=== PATIENT | female | born 2000 | race Caucasian/White ===

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

== ENCOUNTER → 2020-12-25 16:05 | Outpatient (CLI) | payer MEDICAID, SELFPAY ==
[2020-12-25 13:07] VITALS: BMI 61.6
[2020-12-25 19:09] LABS: Chlamydia Trachomatis by PCR POSITIVE (Negative); Neisserai gonorrhoeae by PCR Negative (Negative); Probe Check PASS
== END ==
PROVIDERS: Referring Provider Nurse Practitioner Women's Health; Visit Provider Nurse Practitioner Women's Health
DX: Z11.3 Encounter for screening for infections with a predominantly sexual mode of transmission (principal)
CPT/HCPCS: 87491; 87591

== ENCOUNTER → 2021-08-10 16:21 | Outpatient (CLI) | payer MEDICAID, SELFPAY ==
[2021-08-10 17:17] LABS: Amphetamine Urine VISTA NEGATIVE (<1000 ng/mL); Barbiturate Urine VISTA NEGATIVE (< 200 ng/mL); Benzodiazepine Urine VISTA NEGATIVE (< 200 ng/mL); Cocaine Urine VISTA NEGATIVE (< 300 ng/mL); Ecstacy Urine VISTA NEGATIVE (< 500 ng/mL); Methadone Urine VISTA NEGATIVE (< 300 ng/mL); PCP Urine VISTA NEGATIVE (< 25 ng/mL); THC Urine VISTA NEGATIVE (< 50 ng/mL); Vista UDS pH Range 6
[2021-08-12 22:06] LABS: Chlamydia By Nucleic Acid AMP Negative (Negative)
[2021-08-12 22:50] LABS: Gonococcus By Nucleic Acid AMP Negative (Negative)
[2021-08-16 14:39] LABS: HPV Reflexed? NOT INDICATED
== END ==
PROVIDERS: Referring Provider Obstetrics & Gynecology; Visit Provider Obstetrics & Gynecology
DX: Z34.90 Encounter for supervision of normal pregnancy, unspecified, unspecified trimester (principal); F32.A Depression, unspecified; E66.01 Morbid (severe) obesity due to excess calories; E03.9 Hypothyroidism, unspecified; J45.909 Unspecified asthma, uncomplicated; Z68.44 Body mass index [BMI] 60.0-69.9, adult
CPT/HCPCS: 80307; 87086; 87088; 87491; 87591; 88175; G0145

== ENCOUNTER 2021-09-08 16:03 | Outpatient (CLI) | payer MEDICAID, SELFPAY ==
[2021-09-08 17:08] LABS: Absolute Lymphocyte Count 1.81 X10^3/uL (0.83-4.51); Absolute Neutrophil Count 9.2 X10^3/uL (2.0-7.7); Basophil# 0.04 X10^3/uL; Basophil% 0.3 % (0-1); Eosinophil# 0.05 X10^3/uL; Eosinophils% 0.4 % (0-5); Lymphocyte # 1.81 X10^3/ul (0.83-4.51); Lymphocyte % 15.6 % (19-41); Mean Corp Hgb Conc 34.2 g/dL (32-36); Mean Corpuscular Hgb 28.3 pg (27.0-32.0); Mean Corpuscular Volume 82.8 fL (81-99); Mean Platelet Vol. 10.5 fl (6.2-12.0); Monocyte# 0.46 X10^3/uL; NRBC Flagged by Analyzer 0 % (0-5); Neutrophil # 9.18 X10^3/uL (2.7-7.7); Neutrophil % 79.4 % (47-70); Platelet Count 248 K/mm3 (150-450); RBC Distribution Width CV 13.3 % (11.6-14.6); RBC Distribution Width SD 39.8 fl (35.1-43.9); Red Blood Count 4.59 M/mm3 (4.2-5.4); White Blood Count 11.6 K/mm3 (4.4-11.0)
[2021-09-08 17:59] LABS: Glucose Challenge Gest 1H 50g 142 mg/dL (70-140)
[2021-09-09 09:21] LABS: HIV - WCH Non-Reactive (Nonreactive); Hepatitis B Surface Antigen Non-Reactive (Nonreactive); Hepatitis C Antibody Non-Reactive (Nonreactive); Rubella IgG Reactive (Nonreactive); Syphilis Antibodies Non-reactive
== END 2021-09-08 23:59 | disposition short-term general hospital (02) ==
LOC: LAB 16:05
PROVIDERS: Visit Provider Obstetrics & Gynecology
DX: O99.340 Other mental disorders complicating pregnancy, unspecified trimester (principal); E66.01 Morbid (severe) obesity due to excess calories; F32.A Depression, unspecified; O99.210 Obesity complicating pregnancy, unspecified trimester; O99.280 Endocrine, nutritional and metabolic diseases complicating pregnancy, unspecified trimester; E03.9 Hypothyroidism, unspecified; O99.519 Diseases of the respiratory system complicating pregnancy, unspecified trimester; J45.909 Unspecified asthma, uncomplicated; Z3A.00 Weeks of gestation of pregnancy not specified
CPT/HCPCS: 36415; 82950; 85025; 86703; 86762; 86780; 86803; 86850; 86900; 86901; 87340

== ENCOUNTER 2021-11-10 13:37 | Outpatient (CLI) | payer MEDICAID, SELFPAY ==
[2021-11-10 14:10] LABS: Hemoglobin A1c 5.1 % (3.8-5.6)
[2021-11-10 14:13] LABS: Glucose 86 mg/dL (74-106); T4 Free Direct 0.89 ng/dL (0.76-1.46)
== END 2021-11-10 23:59 | disposition home or self-care (01) ==
LOC: PAVLAB 13:38
PROVIDERS: Referring Provider Obstetrics & Gynecology; Visit Provider Obstetrics & Gynecology
DX: Z13.1 Encounter for screening for diabetes mellitus (principal); R73.09 Other abnormal glucose
CPT/HCPCS: 36415; 82947; 83036; 84439

== ENCOUNTER 2021-11-30 15:38 | Outpatient (CLI) | payer MEDICAID, SELFPAY ==
[2021-11-30 15:52] LABS: Absolute Lymphocyte Count 2.35 X10^3/uL (0.83-4.51); Absolute Neutrophil Count 12.7 X10^3/uL (2.0-7.7); Basophil# 0.04 X10^3/uL; Basophil% 0.3 % (0-1); Eosinophil# 0.04 X10^3/uL; Eosinophils% 0.3 % (0-5); Hematocrit 36.2 % (37-47); Hemoglobin 12.6 g/dL (12.0-15.0); Lymphocyte # 2.35 X10^3/ul (0.83-4.51); Lymphocyte % 14.7 % (19-41); Mean Corp Hgb Conc 34.8 g/dL (32-36); Mean Corpuscular Hgb 29.8 pg (27.0-32.0); Mean Corpuscular Volume 85.6 fL (81-99); Mean Platelet Vol. 10.2 fl (6.2-12.0); Monocyte# 0.73 X10^3/uL; Monocyte% 4.6 % (0-10); NRBC Flagged by Analyzer 0 % (0-5); Neutrophil # 12.71 X10^3/uL (2.7-7.7); Neutrophil % 79.6 % (47-70); Platelet Count 228 K/mm3 (150-450); RBC Distribution Width CV 13.7 % (11.6-14.6); RBC Distribution Width SD 42.5 fl (35.1-43.9); Red Blood Count 4.23 M/mm3 (4.2-5.4)
[2021-11-30 16:19] LABS: Protein, Urine (Random) 22.4 mg/dL (<11.9); Protein:Creat Ratio 204 mg/g CRE (0-200)
[2021-11-30 16:27] LABS: ALB/GLOB Ratio 0.8 RATIO (0.9-2.4); AST(SGOT) 10 U/L (15-37); Alanine Aminotransfer ALT/SGPT 27 U/L (13-56); Alkaline Phosphatase 85 U/L (45-117); Anion Gap 6 (5-15); BUN 3 mg/dL (7-18); BUN/Creat Ratio 5.1 RATIO (10-20); Calcium,Total 9.3 mg/dL (8.5-10.1); Chloride 109 mmol/L (98-107); Creatinine, Serum 0.59 mg/dL (0.55-1.02); EST Glomerular Filtration Rate 136 mL/min (>60); Est Glom Filt Rate - Afr Amer 165 mL/min (>60); Glucose 102 mg/dL (74-106); Potassium 3.2 mmol/L (3.5-5.1); Sodium Level 140 mmol/L (136-145)
== END 2021-11-30 23:59 | disposition home or self-care (01) ==
LOC: PAVLAB 15:39
PROVIDERS: Referring Provider Nurse Practitioner Women's Health; Visit Provider Nurse Practitioner Women's Health
DX: Z34.92 Encounter for supervision of normal pregnancy, unspecified, second trimester (principal)
CPT/HCPCS: 36415; 80053; 82570; 84156; 85025

== ENCOUNTER 2021-12-21 10:08 | Outpatient (CLI) | payer MEDICAID, SELFPAY ==
[2021-12-21 11:13] LABS: Absolute Lymphocyte Count 2.05 X10^3/uL (0.83-4.51); Absolute Neutrophil Count 12.2 X10^3/uL (2.0-7.7); Basophil# 0.04 X10^3/uL; Basophil% 0.3 % (0-1); Eosinophil# 0.07 X10^3/uL; Eosinophils% 0.5 % (0-5); Hematocrit 34.8 % (37-47); Hemoglobin 11.7 g/dL (12.0-15.0); Lymphocyte # 2.05 X10^3/ul (0.83-4.51); Lymphocyte % 13.5 % (19-41); Mean Corp Hgb Conc 33.6 g/dL (32-36); Mean Corpuscular Volume 86.1 fL (81-99); Mean Platelet Vol. 10.2 fl (6.2-12.0); Monocyte# 0.74 X10^3/uL; Monocyte% 4.9 % (0-10); NRBC Flagged by Analyzer 0 % (0-5); Neutrophil % 80.3 % (47-70); Platelet Count 230 K/mm3 (150-450); RBC Distribution Width CV 13.6 % (11.6-14.6); RBC Distribution Width SD 42.4 fl (35.1-43.9); Red Blood Count 4.04 M/mm3 (4.2-5.4); White Blood Count 15.2 K/mm3 (4.4-11.0)
[2021-12-21 11:27] LABS: Glucose GTT-Gestation. Fasting 88 mg/dL (<105)
[2021-12-21 11:45] LABS: Thyroid Stim Hormone (TSH) 3.24 uIU/mL (0.358-3.74)
[2021-12-21 12:22] LABS: Glucose GTT-Gestational 1 Hr 169 mg/dL (<190)
[2021-12-21 12:57] LABS: Glucose GTT-Gestational 2 Hr 154 mg/dL (<165)
[2021-12-21 14:04] LABS: Glucose GTT-Gestational 3 Hr 71 L (<145)
== END 2021-12-21 23:59 | disposition home or self-care (01) ==
PROVIDERS: Nurse Practitioner Women's Health; Visit Provider Obstetrics & Gynecology
DX: R73.09 Other abnormal glucose (principal); E03.9 Hypothyroidism, unspecified
CPT/HCPCS: 36415; 82951; 82952; 84443; 85025

== ENCOUNTER 2022-01-18 22:20 | Outpatient (CLI) | payer MEDICAID, SELFPAY ==
[2022-01-18 22:47] VITALS: BMI 52.4
[2022-01-18 22:54] VITALS: O2SAT 97
[2022-01-18 22:55] VITALS: BP 129/58; PULSE 102; O2SAT 98
[2022-01-18 22:58] VITALS: TEMP 37.4
[2022-01-18 23:22] LABS: Mucous, Urine 0 SEEN /hpf (<or=2+)
[2022-01-18 23:25] LABS: Color, Urine Yellow (Yellow); Glucose, Dipstick 100 mg/dl (Normal); Ketone-Dipstick 50 mg/dl (Negative); Leukocyte Esterase-Dipstick 500 /ul (Negative); Nitrite-Dipstick Negative (Negative); Occult Blood-Urine 10 /ul (Negative); Protein-Dipstick 15 mg/dl (Negative); Urine Bilirubin Dipstick Negative (Negative); Urine Clarity Sl. Cloudy (Clear); Urine Urobilinogen 1 mg/dl (Normal); Urine pH 6.5 (5.0 - 8.0)
[2022-01-18 23:39] LABS: Bacteria 4+ /hpf (None Seen); Red Blood Cells-Urine 0-5 SEEN /hpf (0-5); Squamous Epithelial Cells - UA 5-10 SEEN /hpf (5-10); White Blood Cells 10-25 SEEN /hpf (0-5)
[2022-01-18 23:40] LABS: Transitional Epithelial - Ur 0-5 SEEN /hpf (0-5)
--- NOTE | 2022-01-19 18:46 | OB.TRI.PN ---
Progress Notes Date of Service: 01/18/22 Progress Note: Patient presents for triage evaluation secondary to abdominal pain FHT: 150 Moderate variability reactive no decelerations category I tracing [place]: n oregular Contractions Assessment and plan: abdominal pain, resolved spontaneously, ua and culture sent, Reactive NST, reassuring maternal and status patient discharged to home to follow-up sabino schmitt. See problem list details for additional plan information. Laboratory Studies: Laboratory Tests 01/18/22 Range/Units 23:15 Urine Color Yellow (Yellow) Urine Clarity Sl. Cloudy (Clear) Urine pH 6.5 (5.0 - 8.0) Ur Specific [place] 1.020 (1.002-1.030) Urine Protein 15 H (Negative) mg/dl Urine Glucose (UA) 100 H (Normal) mg/dl Urine Ketones 50 H (Negative) mg/dl Urine Occult Blood 10 H (Negative) /ul Urine Nitrite Negative (Negative) Urine Bilirubin Negative (Negative) mg/dL Urine Urobilinogen 1 H (Normal) mg/dl Ur Leukocyte Esterase 500 H (Negative) /ul Urine RBC 0-5 SEEN (0-5) /hpf Urine WBC 10-25 SEEN (0-5) /hpf Ur Squamous Epith Cells 5-10 SEEN (5-10) /hpf Ur Transition Epith Cell 0-5 SEEN (0-5) /hpf Urine Bacteria 4+ (None Seen) /hpf Urine Mucus 0 SEEN (<or=2+) /hpf Charges/Coding Procedures Urinary/Genital 52xxx-59xxx: 84943-12 non-stress test Interp
== END 2022-01-19 00:05 | disposition home or self-care (01) ==
LOC: WPOUT 22:44 → WP 22:44
PROVIDERS: Visit Provider Obstetrics & Gynecology
DX: O26.899 Other specified pregnancy related conditions, unspecified trimester (principal); R10.9 Unspecified abdominal pain; Z3A.00 Weeks of gestation of pregnancy not specified
CPT/HCPCS: 59025; 59050; 81001; 87086; 87088; 99218; G0378

== ENCOUNTER → 2022-01-22 | Outpatient (CLI) | payer MEDICAID, SELFPAY ==
--- NOTE | 2022-01-22 12:16 | US_ITS ---
STUDY: SECOND AND THIRD TRIMESTER OBSTETRICAL ULTRASOUND - LIMITED REASON FOR EXAM: Female, 21 years old growth @ 32 and 36 weeks LMP: 06/10/2021. PRIOR ULTRASOUND: None. TECHNIQUE: Transabdominal TECHNICAL QUALITY: Limited. Examination limited due to obesity. FINDINGS: There is a single intrauterine fetus. The fetus is in a breech presentation. There is demonstrated cardiac activity with a heart rate of 141 bpm. There is a normal amniotic fluid volume. The largest amniotic fluid pocket measures 5.9 cm cm. The amniotic fluid index (MARIMAR) is 16.6 cm. The placenta is posterior in location and is not low lying. There are Grade 1 placental changes. The cervix measures 4.2 cm in length. BIOMETRY: BPD: 8.29 cm: 33 weeks, 2 days HC: 30.35 cm: 33 weeks, 5 days AC: 29.49 cm: 33 weeks, 3 days FL: 6.52 cm: 33 weeks, 4 days Age by LMP: 32 weeks, 2 days. CLARIBEL by LMP: 03/17/2022. age by current US: 33 weeks, 3 days. CLARIBEL by current US: 03/09/2022. Estimated weight: 2235 grams, +/- 335 grams, 80 percentile. US/OB Limited With Biometrics IMPRESSION: A single live intrauterine gestation with a mean gestational age of 33 weeks and 3 days. Electronically Signed: Dylan Alvarado MD at 13:38 EDT ,
[2022-01-22 19:07] LABS: Protein, Urine (Random) 64.2 mg/dL (<11.9); Protein:Creat Ratio 409 mg/g CRE (0-200)
== END | disposition home or self-care (01) ==
PROVIDERS: Obstetrics & Gynecology; PCP Family Medicine; Visit Provider Nurse Practitioner Women's Health
DX: R80.9 Proteinuria, unspecified (principal)
CPT/HCPCS: 76816; 82570; 84156

== ENCOUNTER → 2022-01-27 | Outpatient (CLI) | payer MEDICAID, SELFPAY ==
[2022-01-27 13:46] LABS: Absolute Lymphocyte Count 2.18 X10^3/uL (0.83-4.51); Absolute Neutrophil Count 15.2 X10^3/uL (2.0-7.7); Basophil# 0.02 X10^3/uL; Basophil% 0.1 % (0-1); Eosinophil# 0.06 X10^3/uL; Eosinophils% 0.3 % (0-5); Hematocrit 37.3 % (37-47); Hemoglobin 12.7 g/dL (12.0-15.0); Lymphocyte # 2.18 X10^3/ul (0.83-4.51); Lymphocyte % 11.8 % (19-41); Mean Corpuscular Hgb 28.9 pg (27.0-32.0); Mean Platelet Vol. 9.6 fl (6.2-12.0); Monocyte# 0.94 X10^3/uL; Monocyte% 5.1 % (0-10); NRBC Flagged by Analyzer 0 % (0-5); Neutrophil % 82.3 % (47-70); Platelet Count 241 K/mm3 (150-450); RBC Distribution Width CV 13.2 % (11.6-14.6); RBC Distribution Width SD 41.1 fl (35.1-43.9); Red Blood Count 4.39 M/mm3 (4.2-5.4); White Blood Count 18.5 K/mm3 (4.4-11.0)
[2022-01-27 14:23] LABS: ALB/GLOB Ratio 0.7 RATIO (0.9-2.4); AST(SGOT) 22 U/L (15-37); Alanine Aminotransfer ALT/SGPT 16 U/L (13-56); Albumin, Serum 2.7 g/dL (3.2-5.0); Alkaline Phosphatase 108 U/L (45-117); Anion Gap 6 (5-15); BUN 4 mg/dL (7-18); BUN/Creat Ratio 7.4 RATIO (10-20); Calcium,Total 9.2 mg/dL (8.5-10.1); Chloride 109 mmol/L (98-107); Creatinine, Serum 0.54 mg/dL (0.55-1.02); EST Glomerular Filtration Rate 150 mL/min (>60); Est Glom Filt Rate - Afr Amer 182 mL/min (>60); Glucose 79 mg/dL (74-106); Potassium 3.8 mmol/L (3.5-5.1); Protein, Total 6.7 g/dL (6.4-8.2); Sodium Level 139 mmol/L (136-145)
[2022-01-27 14:39] LABS: Protein, Urine (Random) 36.5 mg/dL (<11.9); Protein:Creat Ratio 230 mg/g CRE (0-200)
== END | disposition home or self-care (01) ==
LOC: PAVLAB 13:35
PROVIDERS: Nurse Practitioner Women's Health; Referring Provider Obstetrics & Gynecology; Visit Provider Obstetrics & Gynecology
DX: Z34.02 Encounter for supervision of normal first pregnancy, second trimester (principal); R80.9 Proteinuria, unspecified
CPT/HCPCS: 36415; 80053; 82570; 84156; 85025

== ENCOUNTER → 2022-02-12 | Outpatient (CLI) | payer MEDICAID, SELFPAY ==
--- NOTE | 2022-02-12 08:47 | US_ITS ---
STUDY: OBSTETRICAL ULTRASOUND - BIOPHYSICAL PROFILE REASON FOR EXAM: Female, 21 years old obsesity LMP: 06/10/2021 PRIOR ULTRASOUND: 01/22/2022 TECHNIQUE: Transabdominal TECHNICAL QUALITY: Adequate. FINDINGS: There is a single intrauterine fetus. The fetus is in a breech presentation. There is demonstrated cardiac activity with a heart rate of 152 bpm. There is a normal amniotic fluid volume. The largest amniotic fluid pocket measures 7.7 cm. The amniotic fluid index (MARIMAR) is 17.7 cm. The placenta is posterior in location and is not low lying. There are Grade 1 placental changes. Age by LMP: 35 weeks, 2 days. CLARIBEL by LMP: 03/17/2022. BIOPHYSICAL PROFILE: Breathing Movements (FBM): 2 Gross Body Movements (GBM): 2 Tone (FT): 2 Amniotic Fluid Volume (AFV): 2 TOTAL SCORE: 8 / 8 US/Biophysical Prof W/O Non Stres IMPRESSION: Normal biophysical profile of 04/12. Electronically Signed: Avery Gooden MD at 9:36 EDT ,
== END | disposition home or self-care (01) ==
LOC: OPUS 08:43
PROVIDERS: Referring Provider Obstetrics & Gynecology; Visit Provider Obstetrics & Gynecology
DX: E66.01 Morbid (severe) obesity due to excess calories (principal)
CPT/HCPCS: 76819

== ENCOUNTER → 2022-02-17 | Outpatient (CLI) | payer MEDICAID, SELFPAY ==
--- NOTE | 2022-02-17 13:32 | US_ITS ---
STUDY: SECOND AND THIRD TRIMESTER OBSTETRICAL ULTRASOUND - LIMITED REASON FOR EXAM: Female, 21 years old growth LMP: 06/10/2021. PRIOR ULTRASOUND: Comparison is made with prior studies of 01/22/2022. TECHNIQUE: Transabdominal TECHNICAL QUALITY: Adequate. FINDINGS: There is a single intrauterine fetus. The fetus is in a breech presentation. There is demonstrated cardiac activity with a heart rate of 148 bpm. There is a normal amniotic fluid volume. The largest amniotic fluid pocket measures 5.6 x 7.6 cm. The amniotic fluid index (MARIMAR) is 20.1 cm. The placenta is posterior in location and is not low lying. There are Grade 2 placental changes. The cervix measures 3.8 cm in length. BIOMETRY: BPD: 8.9 cm: 35 weeks, 6 days HC: 32.19 cm: 36 weeks, 2 days AC: 33.7 cm: 37 weeks, 4 days FL: 7.16 cm: 36 weeks, 4 days Age by LMP: 36 weeks, 0 days. CLARIBEL by LMP: 03/17/2022. age by prior US: 37 weeks, 1 days. CLARIBEL by prior US: 03/09/2022. age by current US: 36 weeks, 2 days. CLARIBEL by current US: 03/15/2022. Estimated weight: 3145 grams, +/- 472 grams, 81.3 percentile. US/OB Limited With Biometrics IMPRESSION: Single live intrauterine gestation with mean gestational age of 37 weeks and 1 day. The measurements obtained today following within the normal expected range. Electronically Signed: Dylan Alvarado MD at 15:49 EDT ,
--- NOTE | 2022-02-17 13:42 | US_ITS ---
STUDY: OBSTETRICAL ULTRASOUND - BIOPHYSICAL PROFILE REASON FOR EXAM: Female, 21 years old obesity -- WEEKLY STANDING ORDER LMP: 06/10/2021. PRIOR ULTRASOUND: Comparison is made with prior study dated 02/12/2022. TECHNIQUE: Transabdominal TECHNICAL QUALITY: Adequate. FINDINGS: There is a single intrauterine fetus. The fetus is in a breech presentation. There is demonstrated cardiac activity with a heart rate of 167 bpm. There is a normal amniotic fluid volume. The largest amniotic fluid pocket measures 3.3 cm x 10.3 cm. The amniotic fluid index (MARIMAR) is 17.5 cm. The placenta is posterior in location and is not low lying. There are Grade 0 placental changes. Age by LMP: 36 weeks, 0 days. CLARIBEL by LMP: 03/17/2022. BIOPHYSICAL PROFILE: Breathing Movements (FBM): 2 Gross Body Movements (GBM): 2 Tone (FT): 2 Amniotic Fluid Volume (AFV): 2 TOTAL SCORE: 8 / 8 US/Biophysical Prof W/O Non Stres IMPRESSION: Normal biophysical profile of 04/12. Electronically Signed: Dylan Alvarado MD at 15:41 EDT ,
== END | disposition home or self-care (01) ==
LOC: OPUS 13:30
PROVIDERS: Visit Provider Obstetrics & Gynecology
DX: Z34.02 Encounter for supervision of normal first pregnancy, second trimester (principal)
CPT/HCPCS: 76816; 76817; 76819

== ENCOUNTER 2022-02-19 16:35 | Outpatient (CLI) | payer MEDICAID, SELFPAY ==
[2022-02-19 16:47] VITALS: BP 134/89; PULSE 100
[2022-02-19 16:48] VITALS: BMI 55.2
[2022-02-19] MEDS: Lactated Ringers 1,000 ML 999 ML IV (18:25)
[2022-02-19] MEDS: Ondansetron 4 MG/2 ML Vial IV (18:29)
[2022-02-19 19:00] LABS: Absolute Lymphocyte Count 1.13 X10^3/uL (0.83-4.51); Absolute Neutrophil Count 18.9 X10^3/uL (2.0-7.7); Basophil# 0.02 X10^3/uL; Basophil% 0.1 % (0-1); Eosinophil# 0.02 X10^3/uL; Eosinophils% 0.1 % (0-5); Hematocrit 36.6 % (37-47); Hemoglobin 12.5 g/dL (12.0-15.0); Lymphocyte # 1.13 X10^3/ul (0.83-4.51); Lymphocyte % 5.3 % (19-41); Mean Corp Hgb Conc 34.2 g/dL (32-36); Mean Corpuscular Hgb 28.8 pg (27.0-32.0); Mean Corpuscular Volume 84.3 fL (81-99); Mean Platelet Vol. 10.3 fl (6.2-12.0); Monocyte# 0.97 X10^3/uL; Monocyte% 4.6 % (0-10); NRBC Flagged by Analyzer 0 % (0-5); Neutrophil # 18.91 X10^3/uL (2.7-7.7); Neutrophil % 89.3 % (47-70); Platelet Count 231 K/mm3 (150-450); RBC Distribution Width CV 13.1 % (11.6-14.6); RBC Distribution Width SD 40.1 fl (35.1-43.9); Red Blood Count 4.34 M/mm3 (4.2-5.4); White Blood Count 21.2 K/mm3 (4.4-11.0)
[2022-02-19 19:12] LABS: ALB/GLOB Ratio 0.7 RATIO (0.9-2.4); AST(SGOT) 9 U/L (15-37); Alanine Aminotransfer ALT/SGPT 14 U/L (13-56); Albumin, Serum 2.6 g/dL (3.2-5.0); Alkaline Phosphatase 125 U/L (45-117); Anion Gap 8 (5-15); BUN 5 mg/dL (7-18); BUN/Creat Ratio 10.3 RATIO (10-20); Calcium,Total 8.7 mg/dL (8.5-10.1); Chloride 113 mmol/L (98-107); Creatinine, Serum 0.48 mg/dL (0.55-1.02); EST Glomerular Filtration Rate 170 mL/min (>60); Est Glom Filt Rate - Afr Amer 206 mL/min (>60); Estimated Creatinine Clearance 166.83 ml/min; Globulin 3.9 g/dL (2.2-4.2); Glucose 88 mg/dL (74-106); Potassium 3.3 mmol/L (3.5-5.1); Protein, Total 6.5 g/dL (6.4-8.2); Sodium Level 141 mmol/L (136-145)
[2022-02-19 19:54] VITALS: TEMP 36.5
[2022-02-19 19:57] VITALS: BP 146/81; PULSE 103
[2022-02-19 20:16] LABS: Mucous, Urine 0 SEEN /hpf (<or=2+)
[2022-02-19 20:19] LABS: Color, Urine Yellow (Yellow); Glucose, Dipstick Normal (Normal); Leukocyte Esterase-Dipstick 500 /ul (Negative); Nitrite-Dipstick Negative (Negative); Occult Blood-Urine 10 /ul (Negative); Protein-Dipstick 30 mg/dl (Negative); Urine Bilirubin Dipstick Negative (Negative); Urine Clarity Cloudy (Clear); Urine Urobilinogen 1 mg/dl (Normal)
[2022-02-19 20:25] LABS: Ketone-Dipstick 150 mg/dl (Negative)
[2022-02-19 20:34] LABS: Red Blood Cells-Urine 0-5 SEEN /hpf (0-5); Squamous Epithelial Cells - UA 25-50 SEEN /hpf (5-10); White Blood Cells 25-50 SEEN /hpf (0-5)
[2022-02-19 20:35] LABS: Amorphous Sediment 3+ PHOS; Bacteria RARE /hpf (None Seen)
--- NOTE | 2022-02-19 20:45 | OB.TRI.HP_ITS ---
HPI - General HPI Narrative CHANG SIERRA, is a 21 F who presents with acute onset of nausea and vomiting abdominal pain intermittently with contractions. Patient has not dilated significantly. Patient has back pain reoperating around the front. She denies any fever. She has a leukocytosis initially on evaluation and urinalysis is suspicious for UTI. She denies any vaginal bleeding or loss of fluid admits good movement. Maternal Data Information CLARIBEL Calculator Estimated Delivery Date Method Current WG Current Estimate 03/17/22 LMP (Certain) 36w 3d Other Estimates 03/14/22 Ultrasound #1 36w 6d PFSH PFSH Medical History (Updated 02/20/22 @ 15:[address] Mary Person MD) Abnormal glucose Asthma Hypothyroid Low serum potassium Home Medications albuterol sulfate 90 mcg/actuation aerosol inhaler 2 puff inhalation Q6H PRN asthma 12/25/20 [History Last Taken Unknown] multivitamin no.47-iron fum 27 mg-folate no.1 1 mg-dha 300 mg capsule (PNV-DHA) 1 cap PO DAILY 07/28/21 [History Last Taken 02/18/22] ondansetron HCl 4 mg tablet 4 mg PO Q8H PRN nausea and vomiting #30 tabs 09/08/21 [Rx Last Taken 11/03/21 12:00] Allergy/AdvReac Type Severity Reaction Status Date / Time No Known Allergies Allergy Verified 02/19/22 17:22 Family History Aunt Cancer Breast cancer Surgical History History of appendectomy History of tonsillectomy Social History adopted: No current occupational status: employed current occupation: [employer] pets and animals: Yes Smoking Status: Never smoker second hand exposure: Yes alcohol intake: never substance use type: does not use seatbelt use: always do you feel safe at home: Yes additional social history: BF: Praveen History 1 Elective abortions Hx Para Spontaneous abortions Hx # Term Pregnancies Ectopic pregnancies Hx # Pregnancies Multiple births # of living children Visit Details Expected Delivery Route/Plan Labor Preferences- CB/BF classes: yes labor support person: Praveen or her mom Landy labor intervention preferences: [] pain management options preferred: epidural cut cord/dad catch: [] : yes PP control planned: wants IUD pp discussed possible routes of delivery and associated risks: [] special requests: [] Plans Covid status: considering vaccine, encouraged Flu vaccine: given Tdap vaccine: [] Rhogam: na LARC form signed: yes Problem list reviewed and updated with the most current plan of care details and appropriate orders placed. Relevant counseling for the gestational age provided. Continue routine care and follow up unless otherwise noted in visit notes/problem list details OB Flowsheet Initial Weight: 359 lb Date -?-?-?-?-?-?-?-?-?-?-?-?- EGA Weight BP Urine Prot -?-?-?-?-?-?-?-?-?-?-?-?- Glucose FHR FuHt Pres Dilation -?-?-?-?-?-?-?-?-?-?-?-?- Effaced St Visit Note 08/10/21 -?-?-?-?-?-?-?-?-?-?-?-?- 8w 5d 356 lb (-3 lb) 90/62 -?-?-?-?-?-?-?-?-?-?-?-?- 180 -?-?-?-?-?-?-?-?-?-?-?-?- SM- CRL 2.2 cons with LMP 09/08/21 -?-?-?-?-?-?-?-?-?-?-?-?- 12w 6d 343 lb 4 oz (-15 lb 12 oz) 124/78 Negative -?-?-?-?-?-?-?-?-?-?-?-?- Negative 135 -?-?-?-?-?-?-?-?-?-?-?-?- JV- no spotting or cramping. sharyn rx sent in. pt to do her 1 hr and blood work before next visit. declines genetic testing due to cost .she will call her insurance. in the meantime, consult to [facility] for targeted anatomy scan 09/17/21 -?-?-?-?-?-?-?-?-?-?-?-?- 14w 1d 341 lb 2 oz (-17 lb 14 oz) 140/78 Negative -?-?-?-?-?-?-?-?-?-?-?-?- Negative 161 -?-?-?-?-?-?-?-?-?-?-?-?- JV- pt is being seen for spotting. She states that she saw blood on her toilet seat over the weekend and some red blood when she wiped. No cramping. 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 No signs of bleeding on exam on the external or internal exam. ultrasound is normal also 10/06/21 -?-?-?-?-?-?-?-?-?-?-?-?- 16w 6d 334 lb 6 oz (-24 lb 10 oz) 134/68 Trace -?-?-?-?--?-?-?-?-?-?-?-?- Negative 147 -?-?-?-?-?-?-?-?-?-?-?-?- MH-No Vb, LOF. H as not scheduled 3 hr GTT:schedule for her on 10/12 at 10am. Erythematous rash panis:Rx nystatin sent. Has anatomy US with MFM scheduled. 11/10/21 -?-?-?-?-?-?-?-?-?-?-?-?- 21w 6d 333 lb 6 oz (-25 lb 10 oz) 114/62 Negative -?-?-?-?-?-?-?-?-?-?-?-?- Negative 145 -?-?-?-?-?-?-?-?-?-?-?-?- SM- no vb lof go od fm no regular ctx check labs today due to noncompliance with getting 3 hr, still needs 3 hr. 11/30/21 -?-?-?-?-?-?-?-?-?-?-?-?- 24w 5d 336 lb 6 oz (-22 lb 10 oz) 148/78 136/70 Trace -?-?-?-?-?-?-?-?-?-?-?-?- Negative 148 -?-?-?-?-?-?-?-?-?-?-?-?- MH-Britt discharg e when wiped earlier today. Good FM. Last coitus 1 week. No blood in vaginal vault, Cx closed. Reassured. MH-Britt discharge when wiped earlier today. Good FM. Last coitus 1 week. No blood in vaginal vault, Cx closed. Reassured. Pre E labs as initial BP elevated. Stress importance of 3 hr GTT 12/17/21 -?-?-?-?-?-?-?-?-?-?-?-?- 27w 1d 333 lb (-26 lb) 124/82 Trace -?-?-?-?-?-?-?-?-?-?-?-?- Negative 161 -?-?-?-?-?-?-?-?-?-?-?-?- MH-No Vb, LOF. G ood FM. Did not due 3 hr GTT/schedule 12/21. Stressed importance and if not done consider management as GDM. Tearful, much stress, spouse wants separation, not engaged in . Her mother is supportive. Discussed zoloft and agrees to start. Larc 12/31/21 -?-?-?-?-?-?-?-?-?-?-?-?- 29w 1d 330 lb (-29 lb) 130/78 Negative -?-?-?-?-?-?-?-?-?-?-?-?- Negative 157 -?-?-?-?-?-?-?-?-?-?-?-?- MH-No VB, LOF. G ood FM. Nl 3hr GTT. FOB with her today. States zoloft helpful. 01/22/22 -?-?-?-?-?-?-?-?-?-?-?-?- 32w 2d 334 lb 6 oz (-24 lb 10 oz) 126/68 1+ -?-?-?-?-?-?-?-?-?-?-?-?- Negative 140 -?-?-?-?-?-?-?-?-?-?-?-?- SM- no vb lof go od fm no regular ctx nst reactive. ur protein cr ratio sent 01/27/22 -?-?-?-?-?-?-?-?-?-?-?-?- 33w 0d 335 lb 2 oz (-23 lb 14 oz) 134/78 Negative -?-?-?-?-?-?-?-?-?-?-?-?- Negative 146 -?-?-?-?-?-?-?-?-?-?-?-?- MH-reactive NST. NO Vb LOF. Good FM. PreE labs today 02/05/22 -?-?-?-?-?-?-?-?-?-?-?-?- 34w 2d 332 lb 2 oz (-26 lb 14 oz) 128/80 Negative -?-?-?-?-?-?-?-?-?-?-?-?- Negative 140 -?-?-?-?-?-?-?-?-?-?-?-?- SM- no vb lof go od fm nor egular ctx, difficult to trace on nst due to body habitus, will get weekly bpps for testing 02/19/22 -?-?-?-?-?-?-?-?-?-?-?-?- 36w 3d 332 lb (-27 lb) 134/89 146/81 131/58 30 mg/dl (Negative) H -?-?-?-?-?-?-?-?-?-?-?-?- -?-?-?-?-?-?-?-?-?-?-?-?- ROS Constitutional Constitutional: Reports systems reviewed and no addt'l complaints, except as documented and as per HPI ENT HEENT: Reports systems reviewed and no addt'l complaints, except as documented Cardiovascular Cardiovascular: Reports systems reviewed and no addt'l complaints, except as documented Respiratory/Chest Respiratory/Chest: Reports systems reviewed and no addt'l complaints, except as documented Gastrointestinal Gastrointestinal: Reports as per HPI Genitourinary Genitourinary: Reports as per HPI Musculoskeletal Musculoskeletal: Reports systems reviewed and no addt'l complaints, except as documented Integumentary Integumentary: Reports systems reviewed and no addt'l complaints, except as documented Neurologic Neurologic: Reports systems reviewed and no addt'l complaints, except as documented Physical Exam Const alert, oriented x3 and no apparent distress HEENT Head and Scalp: normocephalic and atraumatic Neck full ROM and no lymphadenopathy Chest inspection of chest normal Resp normal respiratory effort GI GI Narrative: gravid, abdomen nontender, AGA Manual OB Exam: dilated, effaced and station NST FHR Rate Baby A Baseline: 140 Variability:: Moderate Accelerations:: 15 x 15 Decelerations:: None NST Reactive:: Yes FHR Category:: Category I Uterine Activity:: regular q 2-4 Assessment & Plan (1) Proteinuria affecting : QUALIFIERS: Trimester: third trimester Qualified Code(s): O12.13 - Gestational proteinuria, third trimester COMMENT: P/C ratio improved. (2) Contraception management: COMMENT: IUD 6 wk pp (3) Abnormal glucose: COMMENT: needs 3 hr GTT, has been noncompliant getting, ordered HgA1c and random glucose 11/10, passed 3 hr. GTT (4) Abnormal Pap smear of cervix: COMMENT: 08/25 LGSIL repeat in 1 year (5) Depression: QUALIFIERS: Depression Type: reactive depression Qualified Code(s): F32.9 - Major depressive disorder, single episode, unspecified COMMENT: 12/17 start zoloft. She and Praveen are ; has fear her MIL will cause issues in WP. 12/31 Praveen with her today. States zoloft helpful (6) Morbid obesity: COMMENT: Nl 3hr GTT. Needs NST wkly at 32 wk (7) H/O cleft lip: COMMENT: FOB has cleft lip (8) Hypothyroid: QUALIFIERS: Hypothyroidism type: acquired Qualified Code(s): E0 3.9 - Hypothyroidism, unspecified COMMENT: levels last checked 06/2021, check every trimester (9) Asthma: COMMENT: PRN inhaler (10) Supervision of normal : QUALIFIERS: Normal : normal first Trimester: second trimester Qualified Code(s): Z34.02 - Encounter for supervision of normal first , second trimester COMMENT: PRR CLARIBEL: 03/17/22 BF: Praveen (11) : QUALIFIERS: Weeks of gestation: 34 weeks Qualified Code(s): Z3A.34 - 34 weeks gestation of COMMENT: anatomy nl, FU views in 2 wks, declines genetic and carrier d/t cost FU for growth in 4 wks due to suboptimal views on anatomy FU (12) UTI (urinary tract infection): COMMENT: ceftriaxone- not keflex x 10 days (13) Leukocytosis: PLAN: Plan Admit short-term observation overnight IV antibiotics given repeat CBC in a.m. IV fluids given. If CBC improves DC home on oral antibiotics and follow-up as outpatient. Patient is status post previous appendectomy. Suspect viral gastroenteritis versus UTI. Antibiotics will be given for possible UTI. No diagnostic imaging indicated at this time. Charges/Coding Multi Select Codes Visit Charges Office Visit/Consults: 23123 OV L3 Est Urinary/Genital Urinary/Genital CPT Codes: 49666-21 non-stress test Interp
[2022-02-19] MEDS: proCHLORPERazine 10 MG/2 ML Vial 5 MG IV (21:10)
[2022-02-19] MEDS: Acetaminophen 500 MG Tablet 1000 MG PO (21:10)
[2022-02-19] MEDS: KCL 40mEq in 0.9% NS 40 MEQ/1,000 ML IV.SOLN 150 MEQ IV (21:13)
[2022-02-19] MEDS: Ceftriaxone 1 GM/50 ML BAG IV (21:13)
[2022-02-20] MEDS: Ondansetron 4 MG/2 ML Vial IV (02:37)
[2022-02-20 05:03] VITALS: BP 131/58; PULSE 107; RESP 14; TEMP 36.5; O2SAT 95
[2022-02-20 05:18] LABS: Absolute Lymphocyte Count 0.56 X10^3/uL (0.83-4.51); Absolute Neutrophil Count 14.8 X10^3/uL (2.0-7.7); Basophil# 0.02 X10^3/uL; Basophil% 0.1 % (0-1); Hematocrit 34.6 % (37-47); Hemoglobin 11.9 g/dL (12.0-15.0); Lymphocyte # 0.56 X10^3/ul (0.83-4.51); Lymphocyte % 3.5 % (19-41); Mean Corp Hgb Conc 34.4 g/dL (32-36); Mean Corpuscular Hgb 29.1 pg (27.0-32.0); Mean Corpuscular Volume 84.6 fL (81-99); Mean Platelet Vol. 9.8 fl (6.2-12.0); Monocyte# 0.47 X10^3/uL; Monocyte% 2.9 % (0-10); NRBC Flagged by Analyzer 0 % (0-5); Neutrophil # 14.84 X10^3/uL (2.7-7.7); POSITIVE DIFFERENTIAL YES; Platelet Count 205 K/mm3 (150-450); RBC Distribution Width CV 13.2 % (11.6-14.6); RBC Distribution Width SD 40.5 fl (35.1-43.9); Red Blood Count 4.09 M/mm3 (4.2-5.4)
[2022-02-20 05:31] LABS: Differential Indicated SCAN CRITERIA MET
[2022-02-20 05:32] LABS: Differential Comment SCANNED
[2022-02-20 06:42] LABS: ALB/GLOB Ratio 0.7 RATIO (0.9-2.4); AST(SGOT) 10 U/L (15-37); Alanine Aminotransfer ALT/SGPT 13 U/L (13-56); Albumin, Serum 2.3 g/dL (3.2-5.0); Alkaline Phosphatase 112 U/L (45-117); Anion Gap 7 (5-15); BUN 6 mg/dL (7-18); BUN/Creat Ratio 12.2 RATIO (10-20); Calcium,Total 8.4 mg/dL (8.5-10.1); Chloride 114 mmol/L (98-107); Creatinine, Serum 0.49 mg/dL (0.55-1.02); EST Glomerular Filtration Rate 167 mL/min (>60); Est Glom Filt Rate - Afr Amer 202 mL/min (>60); Estimated Creatinine Clearance 163.42 ml/min; Globulin 3.5 g/dL (2.2-4.2); Glucose 102 mg/dL (74-106); Potassium 3.7 mmol/L (3.5-5.1); Protein, Total 5.8 g/dL (6.4-8.2); Sodium Level 142 mmol/L (136-145)
== END 2022-02-20 07:20 | disposition home or self-care (01) ==
LOC: WPOUT 16:42 → WP 16:43
PROVIDERS: Visit Provider Obstetrics & Gynecology
DX: O12.13 Gestational proteinuria, third trimester (principal); E66.01 Morbid (severe) obesity due to excess calories; O99.810 Abnormal glucose complicating pregnancy; O99.343 Other mental disorders complicating pregnancy, third trimester; F32.9 Major depressive disorder, single episode, unspecified; O99.213 Obesity complicating pregnancy, third trimester; O99.283 Endocrine, nutritional and metabolic diseases complicating pregnancy, third trimester; E03.9 Hypothyroidism, unspecified; O99.513 Diseases of the respiratory system complicating pregnancy, third trimester; J45.909 Unspecified asthma, uncomplicated; O23.43 Unspecified infection of urinary tract in pregnancy, third trimester; O21.2 Late vomiting of pregnancy; Z3A.34 34 weeks gestation of pregnancy
CPT/HCPCS: 96365; 96368; 96361; 96375 ×2; 96376; 36415; 59025; 59050; 80053; 81001; 85025; 87086; 87088; 87426; 99218; J7120; G0378; J2405

== ENCOUNTER → 2022-02-23 | Outpatient (CLI) | payer MEDICAID, SELFPAY ==
--- NOTE | 2022-02-23 15:39 | US_ITS ---
STUDY: OBSTETRICAL ULTRASOUND - BIOPHYSICAL PROFILE REASON FOR EXAM: Female, 21 years old maternal obesity. LMP: 06/10/2021. PRIOR ULTRASOUND: 02/17/2022 02/12/2022 and 01/22/2022 TECHNIQUE: Transabdominal TECHNICAL QUALITY: Adequate. FINDINGS: There is a single intrauterine fetus. The fetus is in a cephalic presentation. There is demonstrated cardiac activity with a heart rate of 153 bpm. There is a normal amniotic fluid volume. The largest amniotic fluid pocket measures 6.2 cm. The amniotic fluid index (MARIMAR) is 21.5 cm. The placenta is posterior in location and is not low lying. There are Grade 2 placental changes. Age by LMP: 36 weeks, 6 days. CLARIBEL by LMP: 03/17/2022. age by prior US: 38 weeks, 0 days. CLARIBEL by prior US: 03/09/2022. BIOPHYSICAL PROFILE: Breathing Movements (FBM): 2 Gross Body Movements (GBM): 2 Tone (FT): 2 Amniotic Fluid Volume (AFV): 2 TOTAL SCORE: 8 / 8 US/Biophysical Prof W/O Non Stres IMPRESSION: Normal biophysical profile of 8/8. Electronically Signed: Aaron Salazar DO at 22:16 EDT ,
== END | disposition home or self-care (01) ==
LOC: US 15:38
PROVIDERS: Referring Provider Nurse Practitioner Women's Health; Visit Provider Nurse Practitioner Women's Health
DX: E66.9 Obesity, unspecified (principal)
CPT/HCPCS: 76819

== ENCOUNTER → 2022-02-26 | Outpatient (CLI) | payer MEDICAID, SELFPAY | END | disposition home or self-care (01) | PROVIDERS: Referring Provider Obstetrics & Gynecology; Visit Provider Obstetrics & Gynecology | DX: Z34.90 Encounter for supervision of normal pregnancy, unspecified, unspecified trimester (principal) | CPT/HCPCS: 87081 ==

== ENCOUNTER 2022-02-27 02:20 | Outpatient (CLI) | payer MEDICAID, SELFPAY ==
[2022-02-27] VITALS (8 sets, daily range): BP systolic 135–140; BP diastolic 63–84; PULSE 69–91; TEMP 36.5; O2SAT 98–99
--- NOTE | 2022-02-27 09:46 | OB.TRI.HP_ITS ---
HPI - General HPI Narrative CHANG SIERRA, is a 21 y/o @ 37 weeks 3 days who presents to L&D with the complaint of losing her mucous plug. She denies contractions but is worried that she could be in labor and baby is breech. No loss of fluid, vaginal bleeding, or dec fm. Maternal Data Information CLARIBEL Calculator Estimated Delivery Date Method Current WG Current Estimate 03/17/22 LMP (Certain) 37w 3d Other Estimates 03/14/22 Ultrasound #1 37w 6d PFSH PFSH Medical History Abnormal glucose Asthma Hypothyroid Low serum potassium Home Medications albuterol sulfate 90 mcg/actuation aerosol inhaler 2 puff inhalation Q6H PRN asthma 12/25/20 [History Last Taken Unknown] multivitamin no.47-iron fum 27 mg-folate no.1 1 mg-dha 300 mg capsule (PNV-DHA) 1 cap PO DAILY 07/28/21 [History Last Taken 02/18/22] Allergy/AdvReac Type Severity Reaction Status Date / Time No Known Allergies Allergy Verified 02/26/22 11:36 Family History Aunt Cancer Breast cancer Surgical History History of appendectomy History of tonsillectomy Social History adopted: No current occupational status: employed current occupation: [employer] pets and animals: Yes Smoking Status: Never smoker second hand exposure: Yes alcohol intake: never substance use type: does not use seatbelt use: always do you feel safe at home: Yes additional social history: BF: Praveen History 1 Elective abortions Hx Para Spontaneous abortions Hx # Term Pregnancies Ectopic pregnancies Hx # Pregnancies Multiple births # of living children Visit Details Expected Delivery Route/Plan Labor Preferences- CB/BF classes: yes labor support person: Praveen or her mom Landy labor intervention preferences: [] pain management options preferred: epidural cut cord/dad catch: [] : yes PP control planned: wants IUD pp discussed possible routes of delivery and associated risks: [] special requests: [] Plans Covid status: considering vaccine, encouraged Flu vaccine: given Tdap vaccine: [] Rhogam: na LARC form signed: yes Problem list reviewed and updated with the most current plan of care details and appropriate orders placed. Relevant counseling for the gestational age provided. Continue routine care and follow up unless otherwise noted in visit notes/problem list details OB Flowsheet Initial Weight: 359 lb Date -?-?-?-?-?-?-?-?-?-?-?-?- EGA Weight BP Urine Prot -?-?-?-?-?-?-?-?-?-?-?-?- Glucose FHR FuHt Pres Dilation -?-?-?-?-?-?-?-?-?-?-?-?- Effaced St Visit Note 08/10/21 -?-?-?-?-?-?-?-?-?-?-?-?- 8w 5d 356 lb (-3 lb) 90/62 -?-?-?-?-?-?-?-?-?-?-?-?- 180 -?-?-?-?-?-?-?-?-?-?-?-?- SM- CRL 2.2 cons with LMP 09/08/21 -?-?-?-?-?-?-?-?-?-?-?-?- 12w 6d 343 lb 4 oz (-15 lb 12 oz) 124/78 Negative -?-?-?-?-?-?-?-?-?-?-?-?- Negative 135 -?-?-?-?-?-?-?-?-?-?-?-?- JV- no spotting or cramping. sharyn rx sent in. pt to do her 1 hr and blood work before next visit. declines genetic testing due to cost .she will call her insurance. in the meantime, consult to [facility] for targeted anatomy scan 09/17/21 -?-?-?-?-?-?-?-?-?-?-?-?- 14w 1d 341 lb 2 oz (-17 lb 14 oz) 140/78 Negative -?-?-?-?-?-?-?-?-?-?-?-?- Negative 161 -?-?-?-?-?-?-?-?-?-?-?-?- JV- pt is being seen for spotting. She states that she saw blood on her toilet seat over the weekend and some red blood when she wiped. No cramping. 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 No signs of bleeding on exam on the external or internal exam. ultrasound is normal also 10/06/21 -?-?-?-?-?--?-?-?-?-?-?-?- 16w 6d 334 lb 6 oz (-24 lb 10 oz) 134/68 Trace -?-?-?-?-?-?-?-?-?-?-?-?- Negative 147 -?-?-?-?-?-?-?-?-?-?-?-?- MH-No Vb, LOF. H as not scheduled 3 hr GTT:schedule for her on 10/12 at 10am. Erythematous rash panis:Rx nystatin sent. Has anatomy US with [facility] scheduled. 11/10/21 -?-?-?-?--?-?-?-?-?-?-?-?- 21w 6d 333 lb 6 oz (-25 lb 10 oz) 114/62 Negative -?-?-?-?-?-?-?-?-?-?-?-?- Negative 145 -?-?-?-?-?-?-?-?-?-?-?-?- SM- no vb lof go od fm no regular ctx check labs today due to noncompliance with getting 3 hr, still needs 3 hr. 11/30/21 -?-?-?-?-?-?-?-?-?-?-?-?- 24w 5d 336 lb 6 oz (-22 lb 10 oz) 148/78 136/70 Trace -?-?-?-?-?-?-?-?-?-?-?-?- Negative 148 -?-?-?-?-?-?-?-?-?-?-?-?- MH-[place] discharg e when wiped earlier today. Good FM. Last coitus 1 week. No blood in vaginal vault, Cx closed. Reassured. MH-[place] discharge when wiped earlier today. Good FM. Last coitus 1 week. No blood in vaginal vault, Cx closed. Reassured. Pre E labs as initial BP elevated. Stress importance of 3 hr GTT 12/17/21 -?-?-?-?-?-?-?-?-?-?-?-?- 27w 1d 333 lb (-26 lb) 124/82 Trace -?-?-?-?-?-?-?-?-?-?-?-?- Negative 161 -?-?-?-?-?-?-?-?-?-?-?-?- MH-No Vb, LOF. G ood FM. Did not due 3 hr GTT/schedule 12/21. Stressed importance and if not done consider management as GDM. Tearful, much stress, spouse wants separation, not engaged in . Her mother is supportive. Discussed zoloft and agrees to start. Larc 12/31/21 -?-?-?-?-?-?-?-?-?-?-?-?- 29w 1d 330 lb (-29 lb) 130/78 Negative -?-?-?-?-?-?-?-?-?-?-?-?- Negative 157 -?-?-?-?-?-?-?-?-?-?-?-?- MH-No VB, LOF. G ood FM. Nl 3hr GTT. FOB with her today. States zoloft helpful. 01/22/22 -?-?-?-?-?-?-?-?-?-?-?-?- 32w 2d 334 lb 6 oz (-24 lb 10 oz) 126/68 1+ -?-?-?-?-?-?-?-?-?-?-?-?- Negative 140 -?-?-?-?-?-?-?-?-?-?-?-?- SM- no vb lof go od fm no regular ctx nst reactive. ur protein cr ratio sent 01/27/22 -?-?-?-?-?-?-?-?-?-?-?-?- 33w 0d 335 lb 2 oz (-23 lb 14 oz) 134/78 Negative -?-?-?-?--?-?-?-?-?-?-?-?- Negative 146 -?-?-?-?-?-?-?-?-?-?-?-?- MH-reactive NST. NO Vb LOF. Good FM. PreE labs today 02/05/22 -?-?-?-?-?-?-?-?-?-?-?-?- 34w 2d 332 lb 2 oz (-26 lb 14 oz) 128/80 Negative -?-?-?-?-?-?-?-?-?-?-?-?- Negative 140 -?-?-?-?-?-?-?-?-?-?-?-?- SM- no vb lof go od fm nor egular ctx, difficult to trace on nst due to body habitus, will get weekly bpps for testing 02/27/22 -?-?-?-?-?-?-?-?-?-?-?-?- 37w 3d 140/84 135/63 -?-?-?-?-?-?-?-?-?-?-?-?- -?-?-?-?-?-?-?-?-?-?-?-?- ROS Constitutional Constitutional: Reports systems reviewed and no addt'l complaints, except as documented Gastrointestinal Gastrointestinal: Denies bloating, constipation, cramping, diarrhea, nausea or vomiting Genitourinary Genitourinary: Reports other Details: Denies vaginal odor, vaginal bleeding, or vaginal discharge ; Denies difficulty urinating or flank pain Physical Exam HEENT normocephalic Resp normal respiratory effort and normal air movement no CVA tenderness Narrative: cx closed/thick/high per nurse Extremity normal to inspection General Extremity: edema bilateral (trace ) NST FHR Rate Baby A Baseline: 140 Variability:: Moderate Accelerations:: 15 x 15 Decelerations:: None NST Reactive:: Yes FHR Category:: Category I Assessment & Plan (1) UTI (urinary tract infection): COMMENT: ceftriaxone- not keflex x 10 days (2) Leukocytosis: (3) Proteinuria affecting : QUALIFIERS: Trimester: third trimester Qualified Code(s): O12.13 - Gestational proteinuria, third trimester COMMENT: P/C ratio improved. (4) Contraception management: COMMENT: IUD 6 wk pp (5) Abnormal glucose: COMMENT: needs 3 hr GTT, has been noncompliant getting, ordered HgA1c and random glucose 11/10, passed 3 hr. GTT (6) Abnormal Pap smear of cervix: COMMENT: 08/25 LGSIL repeat in 1 year (7) Depression: QUALIFIERS: Depression Type: reactive depression Qualified Code(s): F32.9 - Major depressive disorder, single episode, unspecified COMMENT: 12/17 start zoloft. She and Praveen are ; has fear her MIL will cause issues in WP. 12/31 Praveen with her today. States zoloft helpful (8) Morbid obesity: COMMENT: Nl 3hr GTT. Needs NST wkly at 32 wk (9) H/O cleft lip: COMMENT: FOB has cleft lip (10) Hypothyroid: QUALIFIERS: Hypothyroidism type: acquired Qualified Code(s): E03.9 - Hypothyroidism, unspecified COMMENT: levels last checked 06/2021, check every trimester (11) Asthma: COMMENT: PRN inhaler (12) Supervision of normal : QUALIFIERS: Normal : normal first Trimester: second trimester Qualified Code(s): Z34.02 - Encounter for supervision of normal first , second trimester COMMENT: PRR CLARIBEL: 03/17/22 BF: Praveen (13) : QUALIFIERS: Weeks of gestation: 36 weeks Qualified Code(s): Z3A.36 - 36 weeks gestation of COMMENT: anatomy nl, FU views in 2 wks, declines genetic and carrier d/t cost FU for growth in 4 wks due to suboptimal views on anatomy FU, 02/23 BPP nl (14) Breech presentation: PLAN: Plan False labor -labor precautions discussed. keep next scheduled appt. Charges/Coding Multi Select Codes Visit Charges Office Visit/Consults: 11945 OV L3 Est Urinary/Genital Urinary/Genital CPT Codes: 70381-37 non-stress test Interp
== END 2022-02-27 04:05 | disposition home or self-care (01) ==
LOC: WPOUT 02:29 → WP 02:29
PROVIDERS: Visit Provider Obstetrics & Gynecology
DX: O47.1 False labor at or after 37 completed weeks of gestation (principal); E66.01 Morbid (severe) obesity due to excess calories; Z3A.37 37 weeks gestation of pregnancy; O99.513 Diseases of the respiratory system complicating pregnancy, third trimester; J45.909 Unspecified asthma, uncomplicated; O99.343 Other mental disorders complicating pregnancy, third trimester; F32.A Depression, unspecified; O32.1XX0 Maternal care for breech presentation, not applicable or unspecified; O23.43 Unspecified infection of urinary tract in pregnancy, third trimester; O99.213 Obesity complicating pregnancy, third trimester
CPT/HCPCS: 59025; 59050; 99218; G0378

== ENCOUNTER 2022-03-04 19:25 | Outpatient (CLI) | payer MEDICAID, SELFPAY ==
[2022-03-04 19:48] VITALS: PULSE 90; O2SAT 96
[2022-03-04 19:50] VITALS: BP 144/72; PULSE 90
[2022-03-04 19:53] VITALS: PULSE 88; O2SAT 98
[2022-03-04 19:58] VITALS: PULSE 74; O2SAT 98
[2022-03-04 20:04] VITALS: BMI 54.9
[2022-03-04 20:05] VITALS: BP 126/61; PULSE 91
[2022-03-04 20:32] LABS: ROM Internal Control Test YES-OK TO RESULT pt. (Internal QC); ROM Patient Test Negative (Negative)
--- NOTE | 2022-03-04 22:33 | OB.TRI.HP_ITS ---
HPI - General General Date of Admission: 03/04/22 Date of Service: 03/04/22 Chief Complaint: possible labor HPI Narrative CHANG SIERRA, is a 22 y/o @ 37 weeks 5 days who presents to l&D with contractions. She is unsure if she is in labor Maternal Data Information CLARIBEL Calculator Estimated Delivery Date Method Current WG Current Estimate 03/17/22 LMP (Certain) 40w 3d Other Estimates 03/14/22 Ultrasound #1 40w 6d PFSH PFSH Medical History (Updated 03/20/22 @ 09:[address] Colleen Styles, DO) Abnormal glucose Anxiety Asthma Depression Edema Headache Hx of gastroesophageal reflux (GERD) Hypothyroid Low serum potassium Non-smoker Thyroid disorder Home Medications albuterol sulfate 90 mcg/actuation aerosol inhaler 2 puff inhalation Q6H PRN asthma 12/25/20 [History Last Taken Unknown] multivitamin no.47-iron fum 27 mg-folate no.1 1 mg-dha 300 mg capsule (PNV-DHA) 1 cap PO DAILY 07/28/21 [History Last Taken 02/18/22] naproxen 500 mg tablet 500 mg PO BID PRN PRN Pain #30 tabs 03/12/22 [Rx Last Taken Unknown] oxycodone-acetaminophen 5 mg-325 mg tablet (Percocet) 1 tab PO Q6H PRN pain 7 days #20 tabs 03/12/22 [Rx Last Taken Unknown] nifedipine 30 mg tablet,extended release 24 hr (Procardia XL) 30 mg PO DAILY ##30 03/14/22 [Rx Last Taken Unknown] Allergy/AdvReac Type Severity Reaction Status Date / Time No Known Allergies Allergy Verified 03/12/22 08:47 Family History Aunt Cancer Breast cancer Surgical History History of appendectomy History of tonsillectomy Social History adopted: No current occupational status: employed current occupation: [employer] pets and animals: Yes Smoking Status: Former smoker second hand exposure: Yes alcohol intake: never substance use type: does not use seatbelt use: always do you feel safe at home: Yes additional social history: BF: Praveen History 1 Elective abortions Hx Para 0 Spontaneous abortions Hx # Term Pregnancies Ectopic pregnancies Hx # Pregnancies Multiple births # of living children Visit Details Expected Delivery Route/Plan LTCS Labor Preferences- CB/BF classes: yes labor support person: Praveen or her mom Landy labor intervention preferences: [] pain management options preferred: epidural cut cord/dad catch: [] : yes PP control planned: wants IUD pp discussed possible routes of delivery and associated risks: [] special requests: [] Plans Covid status: considering vaccine, encouraged Flu vaccine: given Tdap vaccine: [] Rhogam: na LARC form signed: yes Problem list reviewed and updated with the most current plan of care details and appropriate orders placed. Relevant counseling for the gestational age provided. Continue routine care and follow up unless otherwise noted in visit notes/problem list details OB Flowsheet Initial Weight: 359 lb Date -?-?-?-?-?-?-?-?-?-?-?-?- EGA Weight BP Urine Prot -?-?-?-?-?-?-?-?-?-?-?-?- Glucose FHR FuHt Pres Dilation -?-?-?-?-?-?-?-?-?-?-?-?- Effaced St Visit Note 08/10/21 -?-?-?-?-?-?-?-?-?-?-?-?- 8w 5d 356 lb (-3 lb) 90/62 -?-?-?-?-?-?-?-?-?-?-?-?- 180 -?-?-?-?-?-?-?-?-?-?-?-?- SM- CRL 2.2 cons with LMP 09/08/21 -?-?-?-?-?-?-?-?-?-?-?-?- 12w 6d 343 lb 4 oz (-15 lb 12 oz) 124/78 Negative -?-?-?-?-?-?-?-?-?-?-?-?- Negative 135 -?-?-?-?-?-?-?-?-?-?-?-?- JV- no spotting or cramping. sharyn rx sent in. pt to do her 1 hr and blood work before next visit. declines genetic testing due to cost .she will call her insurance. in the meantime, consult to [facility] for targeted anatomy scan 09/17/21 -?-?-?-?-?-?-?-?-?-?-?-?- 14w 1d 341 lb 2 oz (-17 lb 14 oz) 140/78 Negative -?-?-?-?-?-?-?-?-?-?-?-?- Negative 161 -?-?-?-?-?-?-?-?-?-?-?-?- JV- pt is being seen for spotting. She states that she saw blood on her toilet seat over the weekend and some red blood when she wiped. No cramping. 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 No signs of bleeding on exam on the external or internal exam. ultrasound is normal also 10/06/21 -?-?-?-?-?-?-?-?-?-?-?-?- 16w 6d 334 lb 6 oz (-24 lb 10 oz) 134/68 Trace -?-?-?-?-?-?-?-?-?-?-?-?- Negative 147 -?-?-?-?-?-?-?-?-?-?-?-?- MH-No Vb, LOF. H as not scheduled 3 hr GTT:schedule for her on 10/12 at 10am. Erythematous rash panis:Rx nystatin sent. Has anatomy US with [facility] scheduled. 11/10/21 -?-?-?-?-?-?-?-?-?-?-?-?- 21w 6d 333 lb 6 oz (-25 lb 10 oz) 114/62 Negative -?-?-?-?-?-?-?-?-?-?-?-?- Negative 145 -?-?-?-?-?-?-?-?-?-?-?-?- SM- no vb lof go od fm no regular ctx check labs today due to noncompliance with getting 3 hr, still needs 3 hr. 11/30/21 -?-?-?-?-?-?-?-?-?-?-?-?- 24w 5d 336 lb 6 oz (-22 lb 10 oz) 148/78 136/70 Trace -?-?-?-?-?-?-?-?-?-?-?-?- Negative 148 -?-?-?-?-?-?-?-?-?-?-?-?- MH-[place] discharg e when wiped earlier today. Good FM. Last coitus 1 week. No blood in vaginal vault, Cx closed. Reassured. -[place] discharge when wiped earlier today. Good FM. Last coitus 1 week. No blood in vaginal vault, Cx closed. Reassured. Pre E labs as initial BP elevated. Stress importance of 3 hr GTT 12/17/21 -?-?-?-?-?-?-?-?-?-?-?-?- 27w 1d 333 lb (-26 lb) 124/82 Trace -?-?-?-?-?-?-?-?-?-?-?-?- Negative 161 -?-?-?-?-?-?-?-?-?-?-?-?- -No Vb, LOF. G ood FM. Did not due 3 hr GTT/schedule 12/21. Stressed importance and if not done consider management as GDM. Tearful, much stress, sp ouse wants separation, not engaged in . Her mother is supportive. Discussed zoloft and agrees to start. Larc 12/31/21 -?-?-?-?-?-?-?-?-?-?-?-?- 29w 1d 330 lb (-29 lb) 130/78 Negative -?-?-?-?-?-?-?-?-?-?-?-?- Negative 157 -?-?-?-?-?-?-?-?-?-?-?-?- MH-No VB, LOF. G ood FM. Nl 3hr GTT. FOB with her today. States zoloft helpful. 01/22/22 -?-?-?-?-?-?-?-?-?-?-?-?- 32w 2d 334 lb 6 oz (-24 lb 10 oz) 126/68 1+ -?-?-?-?-?-?-?-?-?-?-?-?- Negative 140 -?-?-?-?-?-?-?-?-?-?-?-?- SM- no vb lof go od fm no regular ctx nst reactive. ur protein cr ratio sent 01/27/22 -?-?-?-?-?-?-?-?-?-?-?-?- 33w 0d 335 lb 2 oz (-23 lb 14 oz) 134/78 Negative -?-?-?-?-?-?-?-?-?-?-?-?- Negative 146 -?-?-?-?-?-?-?-?-?-?-?-?- MH-reactive NST. NO Vb LOF. Good FM. PreE labs today 02/05/22 -?-?-?-?-?-?-?-?-?-?-?-?- 34w 2d 332 lb 2 oz (-26 lb 14 oz) 128/80 Negative -?-?-?-?-?-?-?-?-?-?-?-?- Negative 140 -?-?-?-?-?-?-?-?-?-?-?-?- SM- no vb lof go od fm nor egular ctx, difficult to trace on nst due to body habitus, will get weekly bpps for testing 02/26/22 -?-?-?-?-?-?-?-?-?-?-?-?- 37w 2d 336 lb (-23 lb) 124/78 Trace -?-?-?-?-?-?-?-?-?-?-?-?- Negative 140 39 Breech 0 -?-?-?-?-?-?-?-?-?-?-?-?- SM- no vb lof go od fm no regular ctx discussed primary LTCS will schedule 03/05/22 -?-?-?-?-?-?-?-?-?-?-?-?- 38w 2d 332 lb 4 oz (-26 lb 12 oz) 120/72 Negative -?-?-?-?-?-?-?-?-?-?-?-?- Negative 140 40 Breech 1 -?-?-?-?-?-?-?-?-?-?-?-?- 0 -4 SM- spotti ng yesterday no lof good fm no regular ctx ROS Constitutional Constitutional: Reports systems reviewed and no addt'l complaints, except as documented Gastrointestinal Gastrointestinal: Denies bloating, constipation, cramping, diarrhea, nausea or vomiting Genitourinary Genitourinary: Reports other Details: Denies vaginal odor, vaginal bleeding, or vaginal discharge ; Denies difficulty urinating or flank pain Physical Exam HEENT normocephalic Resp normal respiratory effort and normal air movement no CVA tenderness Extremity normal to inspection General Extremity: edema bilateral (trace ) NST FHR Rate Baby A Baseline: 140 Variability:: Moderate Accelerations:: 15 x 15 Decelerations:: None NST Reactive:: Yes FHR Category:: Category I Uterine Activity:: no contractions Assessment & Plan (1) False labor: PLAN: Plan false labor- precautions given. NST reactive may discharge to home. Charges/Coding Multi Select Codes Visit Charges Office Visit/Consults: 51605 OV L3 Est Urinary/Genital Urinary/Genital CPT Codes: 92635-14 non-stress test Interp
== END 2022-03-04 21:00 | disposition home or self-care (01) ==
LOC: WPOUT 19:26 → WP 19:42
PROVIDERS: Visit Provider Obstetrics & Gynecology
DX: O47.1 False labor at or after 37 completed weeks of gestation (principal); Z87.891 Personal history of nicotine dependence; Z3A.37 37 weeks gestation of pregnancy; O99.513 Diseases of the respiratory system complicating pregnancy, third trimester; J45.909 Unspecified asthma, uncomplicated
CPT/HCPCS: 59025; 59050; 84112; 99218; G0378

== ENCOUNTER → 2022-03-05 | Outpatient (CLI) | payer MEDICAID, SELFPAY ==
--- NOTE | 2022-03-05 11:18 | US_ITS ---
STUDY: OBSTETRICAL ULTRASOUND - BIOPHYSICAL PROFILE REASON FOR EXAM: Female, 22 years old OBESITY LMP: 06/10/2021. PRIOR ULTRASOUND: Comparison is made with prior study dated 02/23/2022. TECHNIQUE: Transabdominal TECHNICAL QUALITY: Adequate. FINDINGS: There is a single intrauterine fetus. The fetus is in a breech presentation. There is demonstrated cardiac activity with a heart rate of 137 bpm. There is a normal amniotic fluid volume. The largest amniotic fluid pocket measures 5 cm. The amniotic fluid index (MARIMAR) is 16.6 cm. The placenta is fundal and posterior in location. There are Grade 3 placental changes. Age by LMP: 38 weeks, 2 days. CLARIBEL by LMP: 03/17/2022. BIOPHYSICAL PROFILE: Breathing Movements (FBM): 2 Gross Body Movements (GBM): 2 Tone (FT): 2 Amniotic Fluid Volume (AFV): 2 TOTAL SCORE: / US/Biophysical Prof W/O Non Stres IMPRESSION: Normal biophysical profile of 04/12. Electronically Signed: Dylan Alvarado MD at 12:02 EDT ,
== END | disposition home or self-care (01) ==
LOC: OPUS 11:13
PROVIDERS: Referring Provider Obstetrics & Gynecology; Visit Provider Obstetrics & Gynecology
DX: O99.210 Obesity complicating pregnancy, unspecified trimester (principal); E66.9 Obesity, unspecified; Z3A.00 Weeks of gestation of pregnancy not specified
CPT/HCPCS: 76819

== ENCOUNTER 2022-03-12 08:24 | Inpatient (IN) | payer MEDICAID, SELFPAY ==
[2022-03-12] VITALS (16 sets, daily range): BP systolic 116–156; BP diastolic 33–101; PULSE 74–100; RESP 16–19; TEMP 35.6–36.6; O2SAT 94–99; BMI 54.9
[2022-03-12] MEDS: Lactated Ringers 1,000 ML 999 ML IV (09:00)
[2022-03-12 09:17] LABS: Absolute Lymphocyte Count 2.25 X10^3/uL (0.83-4.51); Absolute Neutrophil Count 12.6 X10^3/uL (2.0-7.7); Basophil# 0.02 X10^3/uL; Basophil% 0.1 % (0-1); Eosinophil# 0.04 X10^3/uL; Eosinophils% 0.3 % (0-5); Hemoglobin 12.9 g/dL (12.0-15.0); Lymphocyte # 2.25 X10^3/ul (0.83-4.51); Lymphocyte % 14.2 % (19-41); Mean Corp Hgb Conc 33.9 g/dL (32-36); Mean Corpuscular Hgb 28.7 pg (27.0-32.0); Mean Corpuscular Volume 84.4 fL (81-99); Mean Platelet Vol. 10.1 fl (6.2-12.0); Monocyte# 0.87 X10^3/uL; Monocyte% 5.5 % (0-10); NRBC Flagged by Analyzer 0 % (0-5); Neutrophil # 12.61 X10^3/uL (2.7-7.7); Neutrophil % 79.5 % (47-70); Platelet Count 232 K/mm3 (150-450); RBC Distribution Width CV 13.3 % (11.6-14.6); RBC Distribution Width SD 41.1 fl (35.1-43.9); White Blood Count 15.9 K/mm3 (4.4-11.0)
[2022-03-12] MEDS: Acetaminophen 500 MG Tablet 1000 MG PO ×3 (09:17→22:12)
[2022-03-12] MEDS: Lactated Ringers 1,000 ML 15 ML IV (09:59)
[2022-03-12] MEDS: Sodium Citrate/Citric Acid 30 ML UDC PO (11:41)
--- NOTE | 2022-03-12 12:40 | OP.PCM_ITS ---
Assessment & Plan (1) : QUALIFIERS: Weeks of gestation: 38 weeks Qualified Code(s): Z3A.38 - 38 weeks gestation of COMMENT: anatomy nl, FU views in 2 wks, declines genetic and carrier d/t cost FU for growth in 4 wks due to suboptimal views on anatomy FU, 02/23 BPP nl. GBS neg (2) Supervision of normal : QUALIFIERS: Normal : normal first Trimester: second trimester Qualified Code(s): Z34.02 - Encounter for supervision of normal first , second trimester COMMENT: PRR CLARIBEL: 03/17/22 BF: Praveen (3) H/O cleft lip: COMMENT: FOB has cleft lip (4) Morbid obesity: COMMENT: Nl 3hr GTT. Needs NST wkly at 32 wk (5) Depression: QUALIFIERS: Depression Type: reactive depression Qualified Code(s): F32.9 - Major depressive disorder, single episode, unspecified COMMENT: 12/17 start zoloft. She and Praveen are ; has fear her MIL will cause issues in WP. 12/31 Praveen with her today. States zoloft helpful (6) Abnormal Pap smear of cervix: COMMENT: 08/25 LGSIL repeat in 1 year (7) Contraception management: COMMENT: IUD 6 wk pp (8) Breech presentation: COMMENT: primary csection scheduled for 03/12 at 12:00pm with SM (9) Abnormal glucose: COMMENT: needs 3 hr GTT, has been noncompliant getting, ordered HgA1c and random glucose 11/10, passed 3 hr. GTT (10) Hypothyroid: QUALIFIERS: Hypothyroidism type: acquired Qualified Code(s): E03.9 - Hypothyroidism, unspecified COMMENT: levels last checked 06/2021, check every trimester (11) Asthma: COMMENT: PRN inhaler (12) UTI (urinary tract infection): COMMENT: ceftriaxone- not keflex x 10 days (13) delivery delivered: COMMENT: LTCS breech SM girl Lyvia Maternal Data Information CLARIBEL Calculator Estimated Delivery Date Method Current WG Current Estimate 03/17/22 LMP (Certain) 39w 2d Other Estimates 03/14/22 Ultrasound #1 39w 5d Final CLARIBEL Source: LMP Details Operative Information Pre-Operative Diagnosis: Previous Post-Operative Diagnosis: same Indications for : Repeat Elective Classification: Scheduled Type of Anesthesia: Spinal Special Medications: none Antibiotic Given: Ancef 2 grams IV x1 Drain: Tobias to straight drain Estimated Blood Loss: 800 Fluids Replaced: crystalloid Findings Description of Procedure: Spinal anesthesia was placed without difficulty. Tobias catheter was placed. The patient was placed in the dorsal supine position with leftward tilt. Patient was prepped and draped in the normal sterile fashion. Pfannenstiel skin incision was made with the scalpel and carried through to the underlying layer of fascia with the scalpel. Fascia was nicked in the midline and the incision extended laterally. The rectus bellies were dissected off superiorly and inferiorly with out complication both sharply and bluntly. The peritoneum was entered digitally. The incision was stretched and a low transverse uterine incision was made with the scalpel. The buttox was delivered atraumatically and the right and left legs were swept anteriorly and delivered, followed by the body and the arms which were swept anteriorly and delivered. Gentle traction was placed on the mentum to flex the head which was delivered without complication. The cord was clamped and cut and the infant was handed off to awaiting nurse. The placenta was delivered spontaneously immediately following and was noted to be intact and have a three-vessel cord. The uterus was exteriorized cleared of all clots and debris, and the incision was closed in a double layer closure using #1 Monocryl. The ovaries and fallopian tubes were noted to be within normal limits. The uterus was returned to the maternal abdomen and gutters were cleared of all clots and debris. The peritoneum was closed with 3-0 Monocryl in a running fashion. Gloves were changed prior to fascial closure. Fascia was closed with 0 PDS in a running fashion. Subcutaneous tissue was copiously irrigated and the skin was closed with 3-0 Monocryl in a subcuticular fashion. Mepilex dressing was applied without complication. Patient was taken to recovery in stable condition. It was discussed with the patient that based on the clinical information obtained during this encounter, combined with her history, at this time I would recommend [ ] for future deliveries if further pregnancies are desired. Amniotic Membrane Rupture Type: Artificial Amniotic Fluid Description: Clear Placenta Disposition: [facility] Cord Vessel Description: 3 Vessels Cord Entanglement: None Delayed Cord Clamping: Yes Complications Risks of Surgery Discussed w/Patient: Bleeding, Infection, Need for Future C- Sections and Injury to surrounding structure(s) including bowel and bladder Vaginal Delivery Complication Complications: None Admit VTE Documentation VTE Present on Admission: No VTE Mechan Device Prophylaxis: SCD's Procedures Urinary/Genital [id number]: 76377 delivery+PP Care([facility])
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
[2022-03-12] MEDS: Oxytocin 30 units/NS 500 ml 30 UNITS/500 ML IV.SOLN 167 UNITS IV (14:10)
--- NOTE | 2022-03-12 14:27 | NURSING ---
reddened yeasty area noted in abdominal fold distal to insicion. Dr. Person aware and assessed area.
--- NOTE | 2022-03-12 14:48 | DCINST_ITS ---
Discharge Instructions Diet Discharge Diet: No restrictions Activity Discharge Activity: Return to Normal Activity, May Drive (when pain free and off narcotic pain meds), May Shower and May Take a Tub Bath (in 4 weeks) May resume sexual activity in: 6 weeks Weight Bearing Status: Full weight bearing Lifting Restrictions: under 30 lbs for 6 weeks Dressing / Incision Call your doctor if your incision/area has: Continuous Slow Oozing, Sudden Increased Bleeding, Increased Pain/ Swelling, Increased Redness, Foul Smelling Discharge and - Call your doctor if you observe: Fever of 101 or Higher, Using more than 1 pad per hour, Shortness of breath, Chest pain and Uncontrolled pain Suture Line Care: Avoid Pulling/Pushing and Avoid Pinching/Bending Change Dressing in: 1 week (leave open to air after removed) Remove Dressing in: 1 week (if present) Cleanse incision/area with: Soap & Water and Keep Dressing Clean & Dry Follow Up Care Please Follow Up With: Mary Person MD When: Call to make an appointment with your doctor for a postop visit in 2 and 6 weeks. Test Results: Test results from this visit will be discussed in further detail at your follow- up appointment, if applicable. Discharge Plan Admission Admit Date/Time: 03/12/22 08:24 Attending Provider: Mary Person Primary Care Provider: Care PhysicianChasidy Primary Discharge Orders/Prescriptions Prescriptions: New oxycodone-acetaminophen [Percocet] 5-325 mg tablet 1 tab PO Q6H PRN (Reason: pain) 7 Days Qty: 20 0RF naproxen [naproxen] 500 mg tablet 500 mg PO BID PRN PRN (Reason: Pain) Qty: 30 1RF No Action albuterol sulfate 90 mcg/actuation HFA aerosol inhaler 2 puff INHALATION Q6H PRN (Reason: asthma) PNV-DHA 27 mg iron-1 mg -300 mg capsule 1 cap PO DAILY Referrals / Follow Up: Care PhysicianChasidy Primary [Primary Care Provider] - Disposition Disposition (needs filled in before D/C Order can be placed): Home, Self Care
[2022-03-12] MEDS: Ketorolac 30 MG/ML Syringe IV ×2 (14:55→20:49)
[2022-03-12] MEDS: Nystatin Powder 15gm Bottle 1 APPLIC TOPICAL ×2 (16:22→22:13)
[2022-03-12] MEDS: oxyCODONE 5 MG Tablet PO (17:05)
[2022-03-12] MEDS: Lactated Ringers 1,000 ML 100 ML IV (17:35)
[2022-03-13] MEDS: Ketorolac 30 MG/ML Syringe IV ×2 (02:16→08:15)
[2022-03-13] MEDS: Enoxaparin 40 MG/0.4 ML Syringe SC ×2 (02:16→14:34)
[2022-03-13] MEDS: 0.9% Saline Lock 10 ML Syringe IV ×3 (02:16→22:17)
[2022-03-13] MEDS: Acetaminophen 500 MG Tablet 1000 MG PO ×4 (04:39→22:18)
[2022-03-13 05:05] LABS: Hematocrit 29.8 % (37-47); Mean Corp Hgb Conc 33.6 g/dL (32-36); Mean Corpuscular Hgb 28.9 pg (27.0-32.0); Mean Corpuscular Volume 86.1 fL (81-99); Platelet Count 217 K/mm3 (150-450); RBC Distribution Width CV 13.4 % (11.6-14.6); RBC Distribution Width SD 41.4 fl (35.1-43.9); Red Blood Count 3.46 M/mm3 (4.2-5.4); White Blood Count 19.2 K/mm3 (4.4-11.0)
[2022-03-13 05:13] VITALS: BP 123/67; PULSE 68; RESP 14; TEMP 36.1
[2022-03-13 08:08] VITALS: BP 127/59; BP 151/64; PULSE 81; RESP 18; TEMP 36.4; O2SAT 95
[2022-03-13] MEDS: Nystatin Powder 15gm Bottle 1 APPLIC TOPICAL ×3 (08:14→22:17)
[2022-03-13] MEDS: Senna/Docusate Sodium 1 Tablet PO (10:39)
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
[2022-03-13 14:29] VITALS: BP 155/80; PULSE 90; RESP 18; TEMP 36.7; O2SAT 98
[2022-03-13] MEDS: Naproxen 500 MG Tablet PO ×2 (14:33→22:18)
[2022-03-13 15:05] VITALS: BP 148/74
[2022-03-13] MEDS: NIFEdipine 30 MG Tablet PO (15:06)
[2022-03-13 16:36] VITALS: BP 140/74; PULSE 81; RESP 18; TEMP 36.1; O2SAT 97
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
[2022-03-13 20:15] VITALS: BP 132/64; PULSE 77; RESP 18; TEMP 36.3; O2SAT 97
[2022-03-14 01:46] VITALS: BP 141/72; PULSE 80; RESP 18; TEMP 36.3; O2SAT 97
[2022-03-14] MEDS: Enoxaparin 40 MG/0.4 ML Syringe SC ×2 (02:33→13:56)
[2022-03-14] MEDS: Acetaminophen 500 MG Tablet 1000 MG PO ×3 (05:27→18:05)
[2022-03-14] MEDS: Naproxen 500 MG Tablet PO ×3 (06:14→22:08)
[2022-03-14] MEDS: Nystatin Powder 15gm Bottle 1 APPLIC TOPICAL ×3 (06:14→22:09)
[2022-03-14 09:32] VITALS: BP 120/54; PULSE 79; RESP 18; TEMP 36.6; O2SAT 96
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
[2022-03-14] MEDS: Senna/Docusate Sodium 1 Tablet PO (10:48)
[2022-03-14] MEDS: NIFEdipine 30 MG Tablet PO (10:48)
[2022-03-14 14:09] VITALS: BP 143/70; PULSE 89; RESP 16; TEMP 36.8
[2022-03-14 20:04] VITALS: BP 125/54; PULSE 95; RESP 14; TEMP 36.6; O2SAT 95
[2022-03-15] MEDS: Enoxaparin 40 MG/0.4 ML Syringe SC ×2 (01:51→14:10)
[2022-03-15 01:54] VITALS: BP 114/50; PULSE 85; RESP 14; TEMP 36.3; O2SAT 95
[2022-03-15] MEDS: Acetaminophen 500 MG Tablet 1000 MG PO ×3 (05:58→11:54)
[2022-03-15] MEDS: Nystatin Powder 15gm Bottle 1 APPLIC TOPICAL (05:58)
[2022-03-15] MEDS: Naproxen 500 MG Tablet PO ×2 (05:58→14:10)
[2022-03-15 09:00] VITALS: BP 137/78; PULSE 78; RESP 18; TEMP 36.5; O2SAT 97
[2022-03-15] MEDS: NIFEdipine 30 MG Tablet PO (10:17)
[2022-03-15] MEDS: Senna/Docusate Sodium 1 Tablet PO (10:17)
--- NOTE | 2022-03-15 12:08 | NURSING ---
Discussed the remote patient monitoring program called [facility] Patientlink with patient in order to monior her trending blood pressures. Pt is interested and a consent form was signed. Stressed to patient that if SBP > 160 and or DBP > 110 or have symptoms on the pre-eclampsia education pamphlet, to call the doctor and not wait for Patient Link personnel to call her.
--- NOTE | 2022-03-15 12:11 | CM.ED ---
Social Work Note ASHLEY received call from Flaca at [facility] requesting call back regarding [facility] Referral made for pt. Flaca states that Emily FRENCH had check marked Early Interventions for pt's baby and Flaca states that service is for like NewBorns that were born prematurely, or were on the NICU for a while, or concerns for disabilities. Flaca states that then it was check marked that there were no concerns for developmental delays. ASHLEY spoke with Eimly FRENCH who states pt's baby only needs home visits, not the early interventions. ASHLEY updated Flaca at [facility] of this. Frieda Victor RN CVICU, MAPPING PILOT
--- NOTE | 2022-03-15 12:45 | PCM.PN.OB ---
Subjective Subjective Patient doing well without complaints. Tolerating PO. Ambulating and voiding without difficulty. feeding well. Denies chest pain, shortness of breath, calf pain/swelling, fevers, chills, lightheadedness. Objective Data Objective Data Vital Signs: Vital Signs Temp Pulse Resp BP Pulse Ox O2 Del Method 97.7 F L 78 18 137/78 H 97 Room Air 03/15/22 09:00 03/15/22 09:00 03/15/22 09:00 03/15/22 09:00 03/15/22 09:00 03/15/22 09:00 Oxygen Delivery Method Room Air Weight: 330 lb Body Mass Index (BMI) 54.9 Lab / Micro Data Result Diagrams: 03/13/22 04:55 Micro: Microbiology 03/12/22 09:05 Nasal Secretion SARS-CoV-2 Antigen (Rapid) - Final ROS Constitutional Constitutional: Reports systems reviewed and no addt'l complaints, except as documented Cardiovascular Cardiovascular: Reports systems reviewed and no addt'l complaints, except as documented Respiratory/Chest Respiratory/Chest: Reports systems reviewed and no addt'l complaints, except as documented Gastrointestinal Gastrointestinal: Reports systems reviewed and no addt'l complaints, except as documented Physical Exam Const alert, oriented x3 and no apparent distress HEENT Head and Scalp: atraumatic Resp normal respiratory effort GI soft to palpation and non-tender Inspection: incision intact, healing well and drainage (none) Bimanual Exam - Vag & Uterus: uterus non-tender Uterus Palpation: uterus fundus firm (below Umbilicus) Assessment & Plan (1) delivery delivered: COMMENT: LTCS breech SM girl Lyvia (2) Morbid obesity: COMMENT: Nl 3hr GTT. Needs NST wkly at 32 wk (3) Depression: QUALIFIERS: Depression Type: reactive depression Qualified Code(s): F32.9 - Major depressive disorder, single episode, unspecified COMMENT: 12/17 start zoloft. She and Praveen are ; has fear her MIL will cause issues in WP. 12/31 Praveen with her today. States zoloft helpful (4) Abnormal Pap smear of cervix: COMMENT: 08/25 LGSIL repeat in 1 year (5) Hypothyroid: QUALIFIERS: Hypothyroidism type: acquired Qualified Code(s): E03.9 - Hypothyroidism, unspecified COMMENT: levels last checked 06/2021, check every trimester (6) Asthma: COMMENT: PRN inhaler (7) Elevated blood pressure reading: COMMENT: procardia started PLAN: Plan s/p LTCS PPD # 3 1. routine post care 2. breast feeding- support given 3. rh positive 4. rubella immune procardia started
--- NOTE | 2022-03-15 12:50 | DS.PCM_ITS ---
Providers Date of Admission: 03/12/22 Primary Care Physician: No Primary Care Phys Reason For Visit: DELIVERY Diagnosis Discharge Diagnosis (1) delivery delivered: Status: Acute Code(s): O82 - Encounter for delivery without indication (2) Morbid obesity: Status: Acute Code(s): E66.01 - Morbid (severe) obesity due to excess calories (3) Depression: Status: Acute Code(s): F32.A - Depression, unspecified Qualifiers: Depression Type: reactive depression Qualified Code(s): F32.9 - Major depressive disorder, single episode, unspecified (4) Abnormal Pap smear of cervix: Status: Acute Code(s): R87.619 - Unspecified abnormal cytological findings in specimens from cervix uteri (5) Hypothyroid: Status: Acute Code(s): E03.9 - Hypothyroidism, unspecified Qualifiers: Hypothyroidism type: acquired Qualified Code(s): E03.9 - Hypothyroidism, unspecified (6) Asthma: Status: Acute Code(s): J45.909 - Unspecified asthma, uncomplicated (7) Elevated blood pressure reading: Status: Acute Code(s): R03.0 - Elevated blood-pressure reading, without diagnosis of hypertension Plan s/p LTCS PPD # 3 1. routine post care 2. breast feeding- support given 3. rh positive 4. rubella immune procardia started Medications at Discharge Home Medications albuterol sulfate 90 mcg/actuation aerosol inhaler 2 puff inhalation Q6H PRN asthma 12/25/20 multivitamin no.47-iron fum 27 mg-folate no.1 1 mg-dha 300 mg capsule (PNV-DHA) 1 cap PO DAILY 07/28/21 naproxen 500 mg tablet 500 mg PO BID PRN PRN Pain #30 tabs 03/12/22 oxycodone-acetaminophen 5 mg-325 mg tablet (Percocet) 1 tab PO Q6H PRN pain 7 days #20 tabs 03/12/22 nifedipine 30 mg tablet,extended release 24 hr (Procardia XL) 30 mg PO DAILY ##30 03/14/22 Hospital Course Summary of Care Provided Hospital Course: patient presented for breech LTCS and had an uncomplicated delivery. Postoperatively patient had return of bowel and bladder function and was ambu lating well, tolerating adequate p.o., and was stable for discharge to home on postop day #3. bps became elevated PPD1 and procardia was started and she will be followed as an OP with this. Discharge medications procardia naproxen and Percocet. Follow-up in office in 2 weeks for incision check in 6 weeks for visit. Routine post section diet and activity instructions. Weight / BMI Weight Weight: 330 lb Body Mass Index (BMI) 54.9 ABG / Lab / Microbiology Data Result Diagrams: 03/13/22 04:55 Microbiology: Microbiology 03/12/22 09:05 Nasal Secretion SARS-CoV-2 Antigen (Rapid) - Final D/C Instructions Discharge Diet: No restrictions Discharge Activity: May Not Drive (for 2 weeks or while taking narcotic pain med ications.), May Shower and May Take a Tub Bath (in 7 days) May shower in (days): 0 May resume sexual activity in: 6 weeks Weight Bearing Status: Full weight bearing Call your doctor if your incision/area has: Continuous Slow Oozing, Sudden Increased Bleeding, Increased Pain/ Swelling, Increased Redness, Foul Smelling Discharge and - Call your doctor if you observe: Fever of 101 or Higher, Using more than 1 pad per hour, Shortness of breath, Chest pain and Uncontrolled pain Suture Line Care: Avoid Pulling/Pushing and Avoid Pinching/Bending Cleanse incision/area with: Soap & Water and Keep Dressing Clean & Dry Please Follow Up With: Mary Person MD When: Call to make an appointment with your doctor for a postop visit in 2 and 6 weeks. Meaningful Use Info Meaningful Use Diagnoses (Choose all that apply): None applicable Discharge Plan Admission Admit Date/Time: 03/12/22 08:24 Attending Provider: Mary Person Primary Care Provider: Care Physician,Chasidy Primary Discharge Orders/Prescriptions Prescriptions: New oxycodone-acetaminophen [Percocet] 5-325 mg tablet 1 tab PO Q6H PRN (Reason: pain) 7 Days Qty: 20 0RF naproxen [naproxen] 500 mg tablet 500 mg PO BID PRN PRN (Reason: Pain) Qty: 30 1RF nifedipine [Procardia XL] 30 mg tablet extended release 24hr 30 mg PO DAILY Qty: 30 2RF No Action albuterol sulfate 90 mcg/actuation HFA aerosol inhaler 2 puff INHALATION Q6H PRN (Reason: asthma) PNV-DHA 27 mg iron-1 mg -300 mg capsule 1 cap PO DAILY Referrals / Follow Up: Care Physician,No Primary [Primary Care Provider] - Disposition Disposition (needs filled in before D/C Order can be placed): Home, Self Care
[2022-03-15 14:39] VITALS: BP 147/75; PULSE 86; RESP 18; TEMP 36
== END 2022-03-15 15:00 | disposition home or self-care (01) | DRG 540 ==
PROVIDERS: Admitting Provider Obstetrics & Gynecology; Visit Provider Obstetrics & Gynecology
PROC: 10D00Z1 Extraction of Products of Conception, Low, Open Approach (ICD-10-PCS; CPT 59514; principal; 2022-03-12 12:15)
DX: O32.1XX0 Maternal care for breech presentation, not applicable or unspecified (principal); O99.214 Obesity complicating childbirth; E03.9 Hypothyroidism, unspecified; E66.01 Morbid (severe) obesity due to excess calories; F41.9 Anxiety disorder, unspecified; J45.909 Unspecified asthma, uncomplicated; O99.344 Other mental disorders complicating childbirth; F32.A Depression, unspecified; Z79.899 Other long term (current) drug therapy; O99.284 Endocrine, nutritional and metabolic diseases complicating childbirth; O99.52 Diseases of the respiratory system complicating childbirth; Z87.440 Personal history of urinary (tract) infections; O34.219 Maternal care for unspecified type scar from previous cesarean delivery; Z3A.39 39 weeks gestation of pregnancy; Z37.0 Single live birth; O99.893 Other specified diseases and conditions complicating puerperium; R03.0 Elevated blood-pressure reading, without diagnosis of hypertension
CPT/HCPCS: 59025; 59050; 76815; 85025; 85027; 86850; 86900; 86901; 87426; 99218; 99406; J7120; A4216; G0378; J2405

== ENCOUNTER → 2024-11-05 | Outpatient (CLI) | payer MEDICAID, SELFPAY ==
[2024-11-05 13:16] LABS: Hemoglobin A1c 5.5 % (<=5.6)
== END | disposition home or self-care (01) ==
LOC: LAB 11:50
PROVIDERS: PCP Family Medicine
DX: E03.9 Hypothyroidism, unspecified (principal); Z13.1 Encounter for screening for diabetes mellitus
CPT/HCPCS: 36415; 83036; 84439; 84443